=== PATIENT | female | born 1995 | race Caucasian/White ===

== ENCOUNTER 2017-01-16 11:55 | Emergency (ER) | payer MEDICAID, OTHER ==
[~2017-01-16] VITALS: Ht 154.9 cm; Wt 82.0 kg
[2017-01-16 11:56] VITALS: BP 132/99; PULSE 90; RESP 18; TEMP 97.6; O2SAT 100
[2017-01-16] MEDS ORDERED: SODIUM CHLORIDE 0.9% FLUSH 10 ML FLUSH IVF PRN (13:00)
[2017-01-16] MEDS ORDERED: SODIUM CHLOR 0.9% 1000 ML INJ 1,000 ML IV ONE (13:00)
[2017-01-16 13:36] VITALS: BP_SYST 132; BP_SYST 134; BP_DIAS 85; BP_DIAS 95; RESP 17; O2SAT 98
[2017-01-16 13:54] LABS: AUTOMATED NEUTROPHIL # 8.4 TH/MM3 (1.8-7.7); BASOPHIL % 0.2 % (0.0-2.0); EOSINOPHIL % 0.5 % (0.0-4.0); HEMATOCRIT 38.9 % (35.0-46.0); HEMO FLAGS DIFF FINAL; LYMPH % 17.2 % (9.0-44.0); LYMPHOCYTE # 1.9 TH/MM3 (1.0-4.8); MEAN CELL VOLUME 84.4 FL (80.0-100.0); MEAN CORPUSCULAR HEMOGLOBIN 27.8 PG (27.0-34.0); MEAN CORPUSCULAR HGB CONC 32.9 % (32.0-36.0); MONO % 4.6 % (0.0-8.0); NEUT % 77.5 % (16.0-70.0); PLATELET COUNT 299 TH/MM3 (150-450); RED BLOOD COUNT 4.61 MIL/MM3 (4.00-5.30); RED CELL DISTRIBUTION WIDTH 14.7 % (11.6-17.2); WHITE BLOOD COUNT 10.8 TH/MM3 (4.0-11.0)
--- NOTE | 2017-01-16 13:55 | PD ---
HPI Chief Complaint: Syncope/Near-Syncope Time Seen by Provider: 12:35 Travel History International Travel<30 days: No Contact w/Intl Traveler<30days: No Traveled to known affect area: No History of Present Illness HPI Patient is a 21-year-old female who presents to emergency with complaints of syncopal versus near syncopal episode today while at work. Patient reports that she [place] the mall today, reports that she was standing under a jane area and felt lightheaded. Reports that she went to the back and sat down and felt like she was going to pass out and may have passed out but reports that she just didn't feel well. Reports that she was easily arousable during this whole incident and had episodes of nausea and vomiting. Patient reports that this occurred 1 hour prior to arrival to the emergency room. Patient reports that she did not hit her head and was in a sitting position the whole time. Denies any chest pain/sob. Reports that she is 14 weeks with her second child. She did have a formal US [address] Varma's office which showed a normal IUP. She is due to see Dr. Varma in the office next week.. She does endorse that she was able to eat breakfast this morning. Denies headache/dizzynes/abdominal pain/ nausea or vomiting at this time. PFSH Past Medical History ADHD: Yes Diminished Hearing: No Immunizations Current: Yes Past Surgical History Section: Yes Social History Alcohol Use: No Tobacco Use: No Substance Use: No Allergies-Medications (Allergen,Severity, Reaction): Coded Allergies: latex (Verified Allergy, Severe, 01/16/17) shrimp (Unverified Allergy, Unknown, 01/16/17) Reported Meds & Prescriptions Reported Meds & Active Scripts Active No Active Prescriptions or Reported Medications Review of Systems General / Constitutional: No: Fever Eyes: No: Visual changes HENT: Positive: Lightheadedness, No: Headaches, Vertigo Cardiovascular: Positive: Syncope, No: Chest Pain or Discomfort, Palpitations, Irregular Rhythm Respiratory: No: Shortness of Breath Gastrointestinal: Positive: Nausea, Vomiting, No: Diarrhea, Abdominal Pain Genitourinary: No: Dysuria, Hesitancy, Incontinence, Pelvic Pain, Discharge, Vaginal Bleeding Musculoskeletal: No: Pain Skin: No Rash Neurologic: No: Weakness Psychiatric: No: Depression Endocrine: No: Polydipsia Hematologic/Lymphatic: No: Easy Bruising Physical Exam Narrative GENERAL: No acute distress, nontoxic SKIN: Focused skin assessment warm/dry. HEAD: Atraumatic. Normocephalic. EYES: Pupils equal and round. No scleral icterus. No injection or drainage. ENT: No nasal bleeding or discharge. Mucous membranes pink and moist. NECK: Trachea midline. No JVD. CARDIOVASCULAR: Regular rate and rhythm. No murmur appreciated. RESPIRATORY: No accessory muscle use. Clear to auscultation. Breath sounds equal bilaterally. GASTROINTESTINAL: Abdomen soft, non-tender, nondistended. Hepatic and splenic margins not palpable. MUSCULOSKELETAL: No obvious deformities. No clubbing. No cyanosis. No edema. NEUROLOGICAL: Awake and alert. No obvious cranial nerve deficits. Motor grossly within normal limits. Normal speech. PSYCHIATRIC: Appropriate mood and affect; insight and judgment normal. Data Data Last Documented VS Vital Signs Date Time Temp Pulse Resp B/P (MAP) Pulse Ox O2 Delivery O2 Flow Rate FiO2 01/16/17 13:36 98 Room Air 01/16/17 13:36 80 17 86 17 01/16/17 11:56 97.6 Orders Orders Electrocardiogram (01/16/17 13:00) Beta Hcg (Quant/Titer) (01/16/17 13:00) Ed Urine Pregnancytest Poc (01/16/17 13:00) Complete Blood Count With Diff (01/16/17 13:00) Comprehensive Metabolic Panel (01/16/17 13:00) Magnesium (Mg) (01/16/17 13:00) B-Type Natriuretic Peptide (01/16/17 13:00) Ckmb (Isoenzyme) Profile (01/16/17 13:00) Troponin I (01/16/17 13:00) Act Partial Throm Time (Ptt) (01/16/17 13:00) Prothrombin Time / Inr (Pt) (01/16/17 13:00) Urinalysis - C+S If Indicated (01/16/17 13:00) Blood Glucose (01/16/17 13:00) Ecg Monitoring (01/16/17 13:00) Iv Access Insert/Monitor (01/16/17 13:00) Oximetry (01/16/17 13:00) Sodium Chloride 0.9% Flush (Ns Flush) (01/16/17 13:00) Sodium Chlor 0.9% 1000 Ml Inj (Ns 1000 M (01/16/17 13:00) Orthostatic Vital Signs (01/16/17 13:00) Urine Culture (01/16/17 15:38) Ceftriaxone Inj (Rocephin Inj) (01/16/17 16:15) Labs Laboratory Tests Test 01/16/17 13:39 01/16/17 15:38 White Blood Count 10.8 TH/MM3 Red Blood Count 4.61 MIL/MM3 Hemoglobin 12.8 GM/DL Hematocrit 38.9 % Mean Corpuscular Volume 84.4 FL Mean Corpuscular Hemoglobin 27.8 PG Mean Corpuscular Hemoglobin Concent 32.9 % Red Cell Distribution Width 14.7 % Platelet Count 299 TH/MM3 Mean Platelet Volume 8.6 FL Neutrophils (%) (Auto) 77.5 % Lymphocytes (%) (Auto) 17.2 % Monocytes (%) (Auto) 4.6 % Eosinophils (%) (Auto) 0.5 % Basophils (%) (Auto) 0.2 % Neutrophils # (Auto) 8.4 TH/MM3 Lymphocytes # (Auto) 1.9 TH/MM3 Monocytes # (Auto) 0.5 TH/MM3 Eosinophils # (Auto) 0.0 TH/MM3 Basophils # (Auto) 0.0 TH/MM3 CBC Comment DIFF FINAL Differential Comment Prothrombin Time 10.1 SEC Prothromb Time International Ratio 0.9 RATIO Activated Partial Thromboplast Time 25.4 SEC Blood Urea Nitrogen 5 MG/DL Creatinine 0.58 MG/DL Random Glucose 75 MG/DL Total Protein 7.6 GM/DL Albumin 3.4 GM/DL Calcium Level 9.0 MG/DL Magnesium Level 2.1 MG/DL Alkaline Phosphatase 60 U/L Aspartate Amino Transf (AST/SGOT) 11 U/L Alanine Aminotransferase (ALT/SGPT) 17 U/L Total Bilirubin 0.5 MG/DL Sodium Level 137 MEQ/L Potassium Level 4.0 MEQ/L Chloride Level 104 MEQ/L Carbon Dioxide Level 23.8 MEQ/L Anion Gap 9 MEQ/L Estimat Glomerular Filtration Rate 134 ML/MIN Total Creatine Kinase 88 U/L Troponin I LESS THAN 0.02 NG/ML B-Type Natriuretic Peptide LESS THAN 2 PG/ML Human Chorionic Gonadotropin, Quant 01077 MIU/ML Urine Color YELLOW Urine Turbidity CLOUDY Urine pH 6.0 Urine Specific [place] 1.018 Urine Protein 30 mg/dL Urine Glucose (UA) NEG mg/dL Urine Ketones 40 mg/dL Urine Occult Blood SMALL Urine Nitrite NEG Urine Bilirubin NEG Urine Urobilinogen LESS THAN 2.0 MG/DL Urine Leukocyte Esterase LARGE Urine RBC 27 /hpf Urine WBC 30 /hpf Urine WBC Clumps RARE Urine Squamous Epithelial Cells 21 /hpf Urine Bacteria MOD /hpf Urine Mucus MANY /lpf Microscopic Urinalysis Comment CULTURE INDICATED MDM Medical Decision Making Medical Screen Exam Complete: Yes Emergency Medical Condition: Yes Medical Record Reviewed: Yes Interpretation(s) Vital Signs Date Time Temp Pulse Resp B/P (MAP) Pulse Ox O2 Delivery O2 Flow Rate FiO2 01/16/17 13:36 98 Room Air 01/16/17 13:36 80 17 132/85 (101) 86 17 134/95 (108) 01/16/17 11:56 97.6 90 18 132/99 (110) 100 Room Air Differential Diagnosis vasovagal syncope, acs, arrhythmia, orthostatic hypotension, electrolyte abnormality, uti Narrative Course EKG at 1331: NSR at 87bpm, qt/qtc: 369/410, non specific changes. FHR 150 - patient with no abdominal pain, vaginal bleeding or discharge During the course of the patients emergency department visit, the patients history, examination, and differential diagnosis were reviewed with the patient. The patient was placed on a telemetry monitor with oximetry and frequent blood pressure monitoring. The patient had 20 gauge IV access obtained and blood work sent for analysis. The patient was initially provided IVF The patients laboratory studies were reviewed and remarkable for CBC & BMP Diagram 01/16/17 13:39 Total Protein 7.6, Albumin 3.4, Calcium Level 9.0, Magnesium Level 2.1, Alkaline Phosphatase 60, Aspartate Amino Transf (AST/SGOT) 11 L, Alanine Aminotransferase (ALT/SGPT) 17, Total Bilirubin 0.5 trop less than 0.02, hcg quant 69,400 Near syncopal episode was likely from heat exhaustion as patients symptoms began after standing under the jane window. Patient reports that she is feeling much better at this time, patient's heart rate is 150, patient with no abdominal pain, no vaginal discharge or bleeding. 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 Signs and symptoms of when to return to emergency room was reviewed patient in detail. Discussed need for patient to drink plenty of fluids. Patient reports that she only drinks soda - discussed importance of maintaining hydration with water. UA positive for uti, patient was given a dose of iv rocephin, will send her home with script for kelfex, she will follow up with cultures from today. Diagnosis Primary Impression: Syncope, near Additional Impression: UTI (urinary tract infection) Patient Instructions: General Instructions Additional Instructions: Please provide patient with a copy of their lab work and studies at discharge* * Please follow up with your primary care doctor in 2-3 days Return to the ER if symptoms worsen or progress Return to the ER as needed Please follow up with Dr. Varma as scheduled Please drink plenty of fluids Please follow up with all cultures from today Scripts Cephalexin (Keflex) 500 Mg Cap 500 MG PO Q6H for Infection for 7 Days, #28 CAP 0 Refills Prov: Judy Duron DO 01/16/17 Disposition: 01 DISCHARGE HOME Condition: Stable Judy Duron DO Jan 16, 2017 13:55
[2017-01-16 14:02] LABS: APTT (PATIENT) 25.4 SEC (24.3-30.1); INTERNATIONAL NORMALIZED RATIO 0.9 RATIO; PROTHROMBIN TIME - PATIENT 10.1 SEC (9.8-11.6)
[2017-01-16 14:18] LABS: ANION GAP 9 MEQ/L (5-15); BICARBONATE 23.8 MEQ/L (21.0-32.0); BLOOD UREA NITROGEN 5 MG/DL (7-18); CHLORIDE 104 MEQ/L (98-107); GLOMERULAR FILTRATION RATE 134 ML/MIN (>89); MAGNESIUM 2.1 MG/DL (1.5-2.5); SODIUM (NA) 137 MEQ/L (136-145)
[2017-01-16 14:19] LABS: ALT (GPT) 17 U/L (9-42); AST (GOT) 11 U/L (16-38)
[2017-01-16 14:37] LABS: ALKALINE PHOSPHATASE 60 U/L (45-117); BETA HCG QUANT 69440 MIU/ML (0-5); TOTAL BILIRUBIN ADULT 0.5 MG/DL (0.2-1.0)
[2017-01-16 14:38] LABS: CREATINE KINASE 88 U/L (26-192)
[2017-01-16 15:59] LABS: BACTERIA, URINE MOD /hpf; BLOOD, URINE SMALL (NEG); COMMENT (UR) CULTURE INDICATED; CULTURE IF INDICATED CULTURE INDICATED; GLUCOSE,URINE NEG (NEG); KETONE, URINE 40 mg/dL (NEG); MUCUS URINE MANY /lpf (OCC); NITRITE,URINE NEG (NEG); SQUAMOUS EPITHELIAL CELL URINE 21 /hpf (0-5); URINE COLOR YELLOW (YELLW/STRAW)
[2017-01-16] MEDS ORDERED: CEPH-460 PO (16:11)
[2017-01-16] MEDS ORDERED: cefTRIAXone INJ 1,000 MG in SODIUM CHLORIDE 0.9% INJ 100 ML IV ONE (16:15)
--- NOTE | 2017-01-16 18:21 | EKG ---
Date Performed: 01/16/2017 Time Performed: 13:31:18 PTAGE: 21 years EKG: Sinus rhythm NONSPECIFIC T-WAVE ABNORMALITY BORDERLINE ECG No significant change from prior electrocardiogram. PREVIOUS TRACING : 11/09/2016 17.55 DOCTOR: Hiren Carter Interpretating Date/Time 01/16/2017 18:21:03
== END 2017-01-16 16:49 | disposition home or self-care (01) ==
LOC: NEPD 11:55
DX: R55 Syncope and collapse (principal); O23.42 Unspecified infection of urinary tract in pregnancy, second trimester; Z3A.14 14 weeks gestation of pregnancy
CPT/HCPCS: 80053; 81001; 82550; 83735; 83880; 84484; 84702; 85025; 85610; 85730; 87086; 93005; 96361; 96374; 99284; J0696; J7030

== ENCOUNTER 2017-06-18 10:19 | Observation (INO) | payer MEDICAID ==
[~2017-06-18] VITALS: Ht 154.9 cm; Wt 87.0 kg
[2017-06-18] VITALS (14 sets, daily range): BP systolic 138–154; BP diastolic 84–105; PULSE 78–121; RESP 16–18; TEMP 98.2–98.4
[2017-06-18] MEDS: SODIUM CHLORIDE 0.9% FLUSH 10 ML FLUSH IV FLUSH SCH (09:00)
[~2017-06-18 10:19] MED LIST: CEPH-460 PO
--- NOTE | 2017-06-18 11:11 | PD ---
HPI Chief Complaint Elevated BP Date Seen: Jun 18, 2017 Time Seen: 10:50 Travel History International Travel<30 Days: No Contact w/Intl Traveler<30Days: No History of Present Illness HPI Patient is a 22 year old at 36 and 0/7 weeks, RUFUS 07/16/2017, patient of Dr. Varma. She presents to the OB ED with reported office BP of 164/112 in setting of history of severe pre-eclampsia. She was sent for pre-eclampsia work- up.. She denies leakage of fluid, vaginal bleeding, and contractions. She feels baby moving regularly. She denies BLACKWELL/N/V/D/fever/sick contacts/SOB/calf pain/ dizziness/seeing spots. She did have syncopal episode first trimester and some global weakness. History of PreE: on aspirin 81mg but taking it only intermittently Of note patient is scheduled for repeat CS on her due date 07/16/2017 at 12pm. History Past Medical History Medical History: Denies Significant Hx Obstetric History Obstetric History G1: 2013, primary CS with Dr. Varma, severe PreE with abruption at 39 weeks G2: current, syncopal episode first trimester, elevated BP 2 weeks ago in office Past Surgical History Narrative Surgical section Family History Narrative Family History Mother with HTN, asthma, COPD Grandmother with PrE Family History: Negative Social History Alcohol Use: No Tobacco Use: No Substance Abuse: No Allergies-Medications (Allergen,Severity, Reaction): Coded Allergies: latex (Verified Allergy, Severe, 01/16/17) shrimp (Unverified Allergy, Unknown, 01/16/17) Home Meds Active Scripts Cephalexin (Keflex) 500 Mg Cap, 500 MG PO Q6H for Infection for 7 Days, #28 CAP 0 Refills Prov:Judy Duron DO 01/16/17 Review of Systems General / Constitutional: No: Fever, Chills Eyes: No: Blurred Vision, Visual changes HENT: No: Headaches, Vertigo Cardiovascular: No: Chest Pain or Discomfort, Syncope Respiratory: No: Cough, Short of Breath Gastrointestinal: No: Nausea, Vomiting, Diarrhea, Abdominal Pain Genitourinary: No: Urgency, Dysuria Musculoskeletal: Weakness, Edema Skin: No Rash, No Itching Neurologic: No: Weakness, Dizziness Physical Exam Narrative GENERAL: Well-nourished, well-developed patient. SKIN: Warm and dry. HEAD: Normocephalic and atraumatic. EYES: No scleral icterus. No injection or drainage. ENT: No nasal drainage noted. Mucous membranes pink. Airway patent. NECK: Supple, trachea midline. No JVD. CARDIOVASCULAR: Regular rate and rhythm without murmurs, gallops, or rubs. RESPIRATORY: Breath sounds equal bilaterally. No accessory muscle use. ABDOMEN/GI: Abdomen soft, non-tender, bowel sounds present, no rebound, no guarding Gravid to [-] weeks size Fundal Height: [-] GENITOURINARY: deferred Uterine Contractions: [absent] FHT's: Category: [1] Baseline: [150] Reactive: [170s] Variability: [mod] Decels: [absent] EXTREMITIES: No cyanosis, some mild bilateral 1+ pitting edema of LE BACK: Nontender without obvious deformity. No CVA tenderness. NEUROLOGICAL: Awake and alert. Motor and sensory grossly within normal limits. Five out of 5 muscle strength in all muscle groups. Normal speech. + left ankle clonus, mild. Normal 2+ patellar reflexes. Data Data Vital Signs Reviewed: Yes (BP 151/88, pulse 95, repeat BP 150/105) Orders Orders Vital Signs (Adult) .ON ADMISSION (06/18/17 10:41) ^ Labor Status (06/18/17 10:41) ^ Non Stress Test (06/18/17 10:41) ^ Hydration (06/18/17 10:41) Cbc No Diff, Includes Plts (06/18/17 10:47) Comprehensive Metabolic Panel (06/18/17 10:47) Uric Acid (06/18/17 10:47) Protein Creat Ratio, Random Ur (06/18/17 10:47) Prothrombin Time / Inr (Pt) (06/18/17 10:47) Labs GBS unknown MDM Medical Record Reviewed: Yes Narrative Course / MDM 22 year old at 36 and 0/7 weeks, RUFUS 07/16/2017, patient of Dr. Varma. Intrauterine : -Category 1 tracing -Repeat CS with Dr. Varma scheduled for 07/16/2017 at 12pm -Monitor heart tones -Routine care -GBS unknown: no history of sepsis, scheduled for CS Induced HTN: -Blood pressures elevated to 150s-160s/80-100s -She does report weakness (not noted on exam), but does have left ankle clonus -Rule out of preeclampsia indicated -CBC, CMP, urinalysis, urine protein/creatinine ratio, uric acid pending -Antihypertensives if BP >160/110 or symptoms -Magnesium and delivery if severe PreE -Aspirin prescribed but patient reports she has not been adherent DW Dr. Mondragon, [place] Dr. Varma Plan Pending workup Diagnosis Diagnosis: Primary Impression: Elevated blood pressure Additional Impressions: with 36 completed weeks gestation History of pre-eclampsia Alana Winchester MD R2 Jun 18, 2017 11:11
[2017-06-18 11:28] LABS: HEMATOCRIT 33.2 % (35.0-46.0); HEMOGLOBIN 10.9 GM/DL (11.6-15.3); MEAN CELL VOLUME 81.7 FL (80.0-100.0); MEAN CORPUSCULAR HEMOGLOBIN 26.8 PG (27.0-34.0); MEAN CORPUSCULAR HGB CONC 32.8 % (32.0-36.0); MEAN PLATELET VOLUME 9.4 FL (7.0-11.0); PLATELET COUNT 215 TH/MM3 (150-450); RED BLOOD COUNT 4.06 MIL/MM3 (4.00-5.30); RED CELL DISTRIBUTION WIDTH 15.5 % (11.6-17.2); WHITE BLOOD COUNT 6.9 TH/MM3 (4.0-11.0)
[2017-06-18 11:38] LABS: AST (GOT) 13 U/L (16-38); BICARBONATE 23.3 MEQ/L (21.0-32.0); BLOOD UREA NITROGEN 5 MG/DL (7-18); CALCIUM 8.6 MG/DL (8.5-10.1); CHLORIDE 109 MEQ/L (98-107); CREATININE 0.58 MG/DL (0.50-1.00); GLOMERULAR FILTRATION RATE 133 ML/MIN (>89); GLUCOSE,RANDOM 73 MG/DL (74-106); SODIUM (NA) 140 MEQ/L (136-145)
[2017-06-18 11:39] LABS: ALT (GPT) 15 U/L (9-42)
[2017-06-18 11:41] LABS: ALKALINE PHOSPHATASE 149 U/L (45-117); TOTAL BILIRUBIN ADULT 0.8 MG/DL (0.2-1.0); TOTAL PROTEIN 6.9 GM/DL (6.4-8.2)
[2017-06-18 11:42] LABS: BACTERIA, URINE RARE /hpf; BILIRUBIN, URINE NEG (NEG); BLOOD, URINE NEG (NEG); GLUCOSE,URINE NEG (NEG); KETONE, URINE 10 mg/dL (NEG); MUCUS URINE FEW /lpf (OCC); NITRITE,URINE NEG (NEG); SQUAMOUS EPITHELIAL CELL URINE 8 /hpf (0-5); TRANSITIONAL EPI CELLS, URINE <1 /hpf; URINE COLOR YELLOW (YELLW/STRAW); URINE LEUKOCYTE ESTERASE TRACE (NEG)
[2017-06-18] MEDS ORDERED: SODIUM CHLORIDE 0.9% FLUSH 10 ML FLUSH IV FLUSH PRN (12:15)
--- NOTE | 2017-06-18 12:27 | HHI.HP ---
HPI Chief Complaint induced HTN Date Seen: Jun 18, 2017 Time Seen: 12:15 Travel History International Travel<30 Days: No Contact w/Intl Traveler<30Days: No History of Present Illness HPI Patient is a 22 year old at 36 and 0/7 weeks, RUFUS 07/16/2017, patient of Dr. Varma. She presents to the OB ED with reported office BP of 164/112 in setting of history of severe pre-eclampsia. She was sent for pre-eclampsia work- up.. She denies leakage of fluid, vaginal bleeding, and contractions. She feels baby moving regularly. She denies BLACKWELL/N/V/D/fever/sick contacts/SOB/calf pain/ dizziness/seeing spots. She did have syncopal episode first trimester and some global weakness. History of PreE: on aspirin 81mg but taking it only intermittently Of note patient is scheduled for repeat CS on her due date 07/16/2017 at 12pm. Weeks Gestation: 1 Para: 2 History Past Medical History Medical History: Denies Significant Hx Obstetric History Obstetric History G1: 2014, primary CS with Dr. Varma, severe PreE with abruption at 39 weeks, lost 1L blood (acute abruption + old blood) G2: current, syncopal episode first trimester, elevated BP 2 weeks ago in office Past Surgical History Narrative Surgical section x 1 Family History Narrative Family History Mother with HTN, asthma, COPD Grandmother with PrE Social History Alcohol Use: No Tobacco Use: No Substance Abuse: No Allergies-Medications (Allergen,Severity, Reaction): Coded Allergies: latex (Verified Allergy, Severe, 01/16/17) shrimp (Unverified Allergy, Unknown, 01/16/17) Home Meds Discontinued Scripts Cephalexin (Keflex) 500 Mg Cap, 500 MG PO Q6H for Infection for 7 Days, #28 CAP 0 Refills Prov:Judy Duron DO 01/16/17 Review of Systems General / Constitutional: No: Fever, Chills Eyes: No: Blurred Vision, Visual changes HENT: No: Headaches, Vertigo Cardiovascular: No: Chest Pain or Discomfort, Palpitations, Syncope Respiratory: No: Cough, Short of Breath Gastrointestinal: No: Nausea, Vomiting, Diarrhea, Abdominal Pain Genitourinary: No: Urgency, Dysuria Musculoskeletal: Weakness, Edema Skin: No Rash, No Itching Neurologic: No: Weakness, Syncope Physical Exam Vital Signs Date Time Temp Pulse Resp B/P (MAP) Pulse Ox O2 Delivery O2 Flow Rate FiO2 06/18/17 11:45 94 17 148/98 (115) 06/18/17 11:45 99 06/18/17 11:40 89 06/18/17 11:35 95 06/18/17 11:30 93 154/92 (112) 06/18/17 11:30 93 06/18/17 11:06 98.4 17 06/18/17 11:00 90 148/102 (117) 06/18/17 10:50 78 150/105 (120) 06/18/17 10:42 95 151/88 (109) Narrative GENERAL: Well-nourished, well-developed patient. SKIN: Warm and dry. HEAD: Normocephalic and atraumatic. EYES: No scleral icterus. No injection or drainage. ENT: No nasal drainage noted. Mucous membranes pink. Airway patent. NECK: Supple, trachea midline. No JVD. CARDIOVASCULAR: Regular rate and rhythm without murmurs, gallops, or rubs. RESPIRATORY: Breath sounds equal bilaterally. No accessory muscle use. ABDOMEN/GI: Abdomen soft, non-tender, bowel sounds present, no rebound, no guarding Gravid to [-] weeks size Fundal Height: [-] GENITOURINARY: deferred Uterine Contractions: [absent] FHT's: Category: [1] Baseline: [150] Reactive: [170s] Variability: [mod] Decels: [absent] EXTREMITIES: No cyanosis, some mild bilateral 1+ pitting edema of LE BACK: Nontender without obvious deformity. No CVA tenderness. NEUROLOGICAL: Awake and alert. Motor and sensory grossly within normal limits. Five out of 5 muscle strength in all muscle groups. Normal speech. + left ankle clonus, mild. Normal 2+ patellar reflexes. Caprini VTE Risk Assessment Caprini VTE Risk Assessment: Mod/High Risk (score >= 2) VTE Pharm Contraindication: High risk for bleeding Caprini Risk Assessment Model Point Value = 1 Point Value = 2 Point Value = 3 Point Value = 5 Age 41-60 Minor surgery BMI > 25 kg/m2 Swollen legs Varicose veins or History of unexplained or recurrent spontaneous Oral contraceptives or hormone replacement Sepsis (< 1 month) Serious lung disease, including pneumonia (< 1 month) Abnormal pulmonary function Acute myocardial infarction Congestive heart failure (< 1 month) History of inflammatory bowel disease Medical patient at bed rest Age 61-74 Arthroscopic surgery Major open surgery (> 45 min) Laparoscopic surgery (> 45 min) Malignancy Confined to bed (> 72 hours) Immobilizing plaster cast Central venous access Age >= 75 History of VTE Family history of VTE Factor V Leiden Prothrombin [id number] Lupus anticoagulant Anticardiolipin antibodies Elevated serum homocysteine Heparin-induced thrombocytopenia Other congenital or acquired thrombophilia Stroke (< 1 month) Elective arthroplasty Hip, pelvis, or leg fracture Acute spinal cord injury (< 1 month) Prophylaxis Regimen Total Risk Factor Score Risk Level Prophylaxis Regimen 0-1 Low Early ambulation 2 Moderate Order ONE of the following: *Sequential Compression Device (SCD) *Heparin 5000 units SQ BID 3-4 Higher Order ONE of the following medications: *Heparin 5000 units SQ TID *Enoxaparin/Lovenox 40 mg SQ daily (WT < 150 kg, CrCl > 30 mL/min) *Enoxaparin/Lovenox 30 mg SQ daily (WT < 150 kg, CrCl > 10-29 mL/min) *Enoxaparin/Lovenox 30 mg SQ BID (WT < 150 kg, CrCl > 30 mL/min) AND/OR *Sequential Compression Device (SCD) 5 or more Highest Order ONE of the following medications: *Heparin 5000 units SQ TID (Preferred with Epidurals) *Enoxaparin/Lovenox 40 mg SQ daily (WT < 150 kg, CrCl > 30 mL/min) *Enoxaparin/Lovenox 30 mg SQ daily (WT < 150 kg, CrCl > 10-29 mL/min) *Enoxaparin/Lovenox 30 mg SQ BID (WT < 150 kg, CrCl > 30 mL/min) AND *Sequential Compression Device (SCD) Data Data Vital Signs Reviewed: Yes (BP 151/88, pulse 95, repeat BP 150/105) Orders Orders Vital Signs (Adult) .ON ADMISSION (06/18/17 10:41) ^ Labor Status (06/18/17 10:41) ^ Non Stress Test (06/18/17 10:41) ^ Hydration (06/18/17 10:41) Cbc No Diff, Includes Plts (06/18/17 10:47) Comprehensive Metabolic Panel (06/18/17 10:47) Uric Acid (06/18/17 10:47) Protein Creat Ratio, Random Ur (06/18/17 10:47) Urinalysis - C+S If Indicated (06/18/17 11:11) Us Ob Bpp Wo Nst Ua Dop W Rpt (06/18/17 12:01) Place In Observation (06/18/17 ) Diet Npo (06/18/17 Lunch) Vital Signs (Adult) JOANNE.[id number] AWAKE (06/18/17 12:10) Heart (06/18/17 12:10) Activity Bed Rest (06/18/17 12:10) Sodium Chloride 0.9% Flush (Ns Flush) (06/18/17 21:00) Sodium Chloride 0.9% Flush (Ns Flush) (06/18/17 12:15) Betamethasone Inj ([place] Soluspan In (06/18/17 12:15) Cbc No Diff, Includes Plts (06/19/17 06:00) Comprehensive Metabolic Panel (06/19/17 06:00) Uric Acid (06/19/17 06:00) Micro Albumin Creat Random Ur (06/19/17 06:00) Labs Laboratory Tests Test 06/18/17 10:30 White Blood Count 6.9 Red Blood Count 4.06 Hemoglobin 10.9 Hematocrit 33.2 Mean Corpuscular Volume 81.7 Mean Corpuscular Hemoglobin 26.8 Mean Corpuscular Hemoglobin Concent 32.8 Red Cell Distribution Width 15.5 Platelet Count 215 Mean Platelet Volume 9.4 Urine Color YELLOW Urine Turbidity HAZY Urine pH 7.0 Urine Specific [place] 1.016 Urine Protein TRACE Urine Glucose (UA) NEG Urine Ketones 10 Urine Occult Blood NEG Urine Nitrite NEG Urine Bilirubin NEG Urine Urobilinogen LESS THAN 2.0 Urine Leukocyte Esterase TRACE Urine RBC 1 Urine WBC 1 Urine Squamous Epithelial Cells 8 Urine Transitional Epithelial Cells <1 Urine Bacteria RARE Urine Mucus FEW Microscopic Urinalysis Comment CULT NOT INDICATED Urine Random Creatinine 150 Urine Random Total Protein 22 Urine Protein/Creatinine Ratio 0.15 Blood Urea Nitrogen 5 Creatinine 0.58 Random Glucose 73 Total Protein 6.9 Albumin 3.0 Calcium Level 8.6 Uric Acid 4.3 Alkaline Phosphatase 149 Aspartate Amino Transf (AST/SGOT) 13 Alanine Aminotransferase (ALT/SGPT) 15 Total Bilirubin 0.8 Sodium Level 140 Potassium Level 3.5 Chloride Level 109 Carbon Dioxide Level 23.3 Anion Gap 8 Estimat Glomerular Filtration Rate 133 Assessment/Plan Problem List: (1) induced hypertension, antepartum ICD Codes: O13.9 - Gestational [-induced] hypertension without significant proteinuria, unspecified trimester (2) with 36 completed weeks gestation ICD Codes: Z3A.36 - 36 weeks gestation of Status: Acute Assessment and Plan 22 year old at 36 and 0/7 weeks, RUFUS 07/16/2017, patient of Dr. Varma. Intrauterine : -Category 1 tracing -Repeat CS with Dr. Varma scheduled for 07/16/2017 at 12pm -Monitor heart tones -Routine care -GBS unknown: no history of sepsis, scheduled for CS -Will require repeat CS Induced HTN: -Blood pressures elevated to 150s-160s/80-100s -She does report weakness (not noted on exam), but does have left ankle clonus -Rule out of preeclampsia indicated -CBC showing mild anemia -CMP unremarkable, no transaminitis -UA showing trace protein -Uric acid 4.3 -Urine protein/creatinine ratio 0.15 -Antihypertensives indicated if BP >160/110 or symptoms, likely to use labetalol -Betamethasone 12mg IM q24hr, first dose now -Magnesium and delivery if severe PreE features present -Hx PreE, aspirin prescribed but patient reports she has not been adherent DW Dr. Mondragon, [place] Dr. Varma Discharge Planning Pending delivery, likely d/c to home 2-3 days post-operatively Alana Winchester MD R2 Jun 18, 2017 12:27
[2017-06-18] MEDS: BETAMETHASONE SOD PHOS/ACETATE SUSP 30 MG/5 ML VIAL IM SCH (13:35)
[2017-06-18] MEDS ORDERED: ZOLPIDEM TARTRATE 5 MG TAB PO PRN (18:00)
[2017-06-19] VITALS (15 sets, daily range): BP systolic 116–142; BP diastolic 53–90; PULSE 92–111; RESP 7–18; TEMP 97.9–98.5
[2017-06-19 05:52] LABS: HEMATOCRIT 32.5 % (35.0-46.0); HEMOGLOBIN 10.4 GM/DL (11.6-15.3); MEAN CELL VOLUME 81.9 FL (80.0-100.0); MEAN CORPUSCULAR HEMOGLOBIN 26.3 PG (27.0-34.0); MEAN PLATELET VOLUME 9.7 FL (7.0-11.0); PLATELET COUNT 226 TH/MM3 (150-450); RED BLOOD COUNT 3.96 MIL/MM3 (4.00-5.30); RED CELL DISTRIBUTION WIDTH 15.8 % (11.6-17.2); WHITE BLOOD COUNT 11.5 TH/MM3 (4.0-11.0)
[2017-06-19 06:25] LABS: ALBUMIN 2.9 GM/DL (3.4-5.0); AST (GOT) 9 U/L (16-38); BLOOD UREA NITROGEN 5 MG/DL (7-18); CALCIUM 8.5 MG/DL (8.5-10.1); CHLORIDE 108 MEQ/L (98-107); CREATININE 0.56 MG/DL (0.50-1.00); GLOMERULAR FILTRATION RATE 138 ML/MIN (>89); GLUCOSE,RANDOM 102 MG/DL (74-106); SODIUM (NA) 140 MEQ/L (136-145)
[2017-06-19 06:26] LABS: ALT (GPT) 15 U/L (9-42)
[2017-06-19 06:28] LABS: ALKALINE PHOSPHATASE 145 U/L (45-117); TOTAL BILIRUBIN ADULT 0.9 MG/DL (0.2-1.0); TOTAL PROTEIN 6.5 GM/DL (6.4-8.2)
[2017-06-19] MEDS: SODIUM CHLORIDE 0.9% FLUSH 10 ML FLUSH IV FLUSH SCH ×2 (09:27→21:00)
[2017-06-19] MEDS: BETAMETHASONE SOD PHOS/ACETATE SUSP 30 MG/5 ML VIAL IM SCH (13:38)
--- NOTE | 2017-06-19 16:55 | HHI.PR ---
Subjective Remarks Doing well, tolerating diet Baby is moving well No h/a, [place], or RUQ Objective Vital Signs Date Time Temp Pulse Resp B/P (MAP) Pulse Ox O2 Delivery O2 Flow Rate FiO2 06/19/17 13:41 97 138/90 (106) 06/19/17 12:40 16 06/19/17 12:24 98 129/87 (101) 06/19/17 12:23 98.5 06/19/17 09:29 100 131/75 (93) 06/19/17 07:50 98.3 16 06/19/17 07:15 92 116/71 (86) 06/19/17 04:22 92 122/53 (76) 06/19/17 04:21 18 06/19/17 00:04 102 124/65 (84) 06/19/17 00:00 97.9 18 06/18/17 19:52 18 06/18/17 19:52 98.2 06/18/17 19:50 107 138/84 (102) 06/18/17 17:51 121 142/87 (105) 06/18/17 17:49 18 Result Diagram: 06/19/17 0504 06/19/17 0504 Other Results WDWN in NAD No swelling Chest is clear CV RRR Abd is gravid and non tender Ext No CCE DTR are +3 and several beats of clonus Assessment and Plan Assessment and Plan 1. IUP at 36/1 2. Pre eclampsia not severe yet although she still has clonus. She has a terrible history of acute onset of pre eclampsia and placental abruption. She has received her steroids and will consider delivering her early..perhaps Saturday due to her poor history. Will follow her carefully and if she develops severe features will deliver sooner. Pedro Pablo Varma MD Jun 19, 2017 16:55
[2017-06-20] VITALS (8 sets, daily range): BP systolic 119–130; BP diastolic 58–81; PULSE 88–95; RESP 16–18; TEMP 97.9–98.5
[2017-06-20] MEDS: SODIUM CHLORIDE 0.9% FLUSH 10 ML FLUSH IV FLUSH SCH ×2 (09:00→21:00)
[2017-06-20] MEDS ORDERED: DEXTROSE 5%-LACTATED RING INJ 1,000 ML IV ONE (16:00)
[2017-06-21] VITALS (10 sets, daily range): BP systolic 130–137; BP diastolic 76–94; PULSE 51–84; RESP 15–20; TEMP 98–98.3; O2SAT 98–99
[2017-06-21] MEDS: SODIUM CHLORIDE 0.9% FLUSH 10 ML FLUSH IV FLUSH SCH (09:00)
--- NOTE | 2017-06-21 09:27 | HHI.PR ---
Objective - Vital Signs Date Time Temp Pulse Resp B/P (MAP) Pulse Ox O2 Delivery O2 Flow Rate FiO2 06/21/17 09:05 18 06/20/17 23:47 88 119/58 (78) 06/20/17 20:18 98.3 Result Diagram: 06/19/17 0504 06/19/17 0504 A/P Problem List: (1) Pre-eclampsia ICD Code: O14.90 - Unspecified pre-eclampsia, unspecified trimester Assessment and Plan HEART NORMAL RHYTHM LUNGS CLEAR TO AUSCULTATION ANTERIOR AND POSTERIOR ABD SOFT AND NONTENDER WITH + BS NO EDEMA OR TENDERNESS TO LOWER EXTREMITIES PT DONG WELL BP WNL, REPEAT LABS ORDERED FOR TODAY PT DENIES LBACKWELL, C/O SEEING OCCASIONAL SPOTS, NO EPIGASTRIC PAIN, PATELLAR REFLEX BRISK FHT TRACING 140'S + ACCELS NO DECELS N A 24 HOUR REVIEW OF STRIP CONSIDER REPEAT C SECTION TOMORROW Discharge Planning UNSURE AT THIS TIME Attending Attestation SEEN AND EXAMINED WITH DR STEWARD AND MEDICAL STUDENT Chani Rizo Jun 21, 2017 09:27
[2017-06-21 10:59] LABS: AUTOMATED NEUTROPHIL # 8.1 TH/MM3 (1.8-7.7); BASOPHIL % 0.2 % (0.0-2.0); HEMATOCRIT 29.7 % (35.0-46.0); HEMOGLOBIN 9.7 GM/DL (11.6-15.3); LYMPHOCYTE # 1.9 TH/MM3 (1.0-4.8); MEAN CELL VOLUME 81.6 FL (80.0-100.0); MEAN CORPUSCULAR HEMOGLOBIN 26.7 PG (27.0-34.0); MEAN CORPUSCULAR HGB CONC 32.7 % (32.0-36.0); MEAN PLATELET VOLUME 9.4 FL (7.0-11.0); MONO % 6.7 % (0.0-8.0); MONOCYTE # 0.7 TH/MM3 (0-0.9); NEUT % 75.1 % (16.0-70.0); PLATELET COUNT 211 TH/MM3 (150-450); RED BLOOD COUNT 3.64 MIL/MM3 (4.00-5.30); RED CELL DISTRIBUTION WIDTH 15.9 % (11.6-17.2); WHITE BLOOD COUNT 10.7 TH/MM3 (4.0-11.0)
[2017-06-21 11:27] LABS: ALBUMIN 2.8 GM/DL (3.4-5.0); DIRECT BILIRUBIN ADULT 0.2 MG/DL (0.0-0.2)
[2017-06-21 11:28] LABS: INDIRECT BILIRUBIN 0.6 MG/DL (0.0-0.8); TOTAL BILIRUBIN ADULT 0.8 MG/DL (0.2-1.0); TOTAL PROTEIN 6.2 GM/DL (6.4-8.2)
[2017-06-21] MEDS ORDERED: LACTATED RINGER'S 1000 ML INJ 1,000 ML IV ONE (12:00)
[2017-06-21] MEDS ORDERED: ceFAZolin INJ 1,000 MG VIAL IV ONE ×3 (12:00→16:30)
[2017-06-21] MEDS ORDERED: KETOROLAC TROMETHAMINE 30 MG/ML (IVP) VIAL IV PUSH ONE (12:00)
[2017-06-21] MEDS ORDERED: OXYTOCIN 10 UNIT/ML AMP IV ONE (12:00)
[2017-06-21] MEDS ORDERED: PHENYLEPH/NS 1000 MCG/10 ML SYR IV ONE (12:00)
[2017-06-21] MEDS ORDERED: ONDANSETRON HCL 4 MG/2 ML VIAL IV ONE (12:00)
[2017-06-21] MEDS ORDERED: DEXAMETHASONE SOD PHOS 4 MG/ML VIAL IV ONE (12:00)
[2017-06-21] MEDS ORDERED: CITRIC ACID-SODIUM CITRATE LIQ 30 ML UDC ONE (15:42)
[2017-06-21] MEDS ORDERED: MORPHINE SULFATE PF 5 MG/10 ML VIAL ONE (15:46)
[2017-06-21] MEDS ORDERED: ACETAMINOPHEN 1000 MG/100 ML 100 ML IV ONE (15:47)
[2017-06-21] MEDS ORDERED: OXYTOCIN 30 UNITS-500ML PREMIX 500 ML IV ONE ×2 (17:45)
[2017-06-21] MEDS ORDERED: oxyCODONE/ACETAMINOPHEN 5 MG/325 MG TAB PO PRN ×2 (17:45)
[2017-06-21] MEDS ORDERED: ACETAMINOPHEN 325 MG TAB PO PRN (17:45)
[2017-06-21] MEDS ORDERED: ZOLPIDEM TARTRATE 5 MG TAB PO PRN (17:45)
[2017-06-21] MEDS ORDERED: SODIUM CHLORIDE 0.9% FLUSH 10 ML FLUSH IV FLUSH PRN (17:45)
[2017-06-21] MEDS ORDERED: ONDANSETRON HCL 4 MG/2 ML VIAL IV PUSH PRN (17:45)
[2017-06-21] MEDS ORDERED: OXYTOCIN 30 UNITS-500ML PREMIX 500 ML ONE (19:22)
[2017-06-21] MEDS ORDERED: SODIUM CHLORIDE 0.9% FLUSH 10 ML FLUSH IV FLUSH SCH (21:00)
[2017-06-21] MEDS ORDERED: EPIDURAL-DO NOT ADMINISTER ANTICOAGULANTS PRN (21:15)
[2017-06-21] MEDS ORDERED: EPIDURAL-NO SYSTEMIC NARCOTICS PRN (21:15)
[2017-06-21] MEDS ORDERED: EPIDURAL-DIPHENHYDRAMINE HCL 50 MG/ML VIAL IV PUSH PRN (21:15)
[2017-06-21] MEDS ORDERED: EPIDURAL-NALOXONE HCL 0.4 MG/ML AMP IV PUSH PRN (21:15)
[2017-06-21] MEDS ORDERED: EPIDURAL-DIPHENHYDRAMINE HCL 50 MG CAP PO PRN (21:15)
[2017-06-21] MEDS ORDERED: OXYTOCIN 30 UNITS-500ML PREMIX 500 ML IV PRN (22:45)
[2017-06-21] MEDS ORDERED: LACTATED RINGER'S 1000 ML INJ 1,000 ML IV SCH (22:45)
[2017-06-22] VITALS (7 sets, daily range): BP systolic 118–145; BP diastolic 69–92; PULSE 62–86; RESP 7–18; TEMP 98–98.6; O2SAT 94–99
[2017-06-22 04:55] LABS: AUTOMATED NEUTROPHIL # 12.5 TH/MM3 (1.8-7.7); BASOPHIL % 0.2 % (0.0-2.0); HEMATOCRIT 29.4 % (35.0-46.0); HEMOGLOBIN 9.7 GM/DL (11.6-15.3); LYMPH % 10.8 % (9.0-44.0); LYMPHOCYTE # 1.7 TH/MM3 (1.0-4.8); MEAN CELL VOLUME 80.8 FL (80.0-100.0); MEAN CORPUSCULAR HEMOGLOBIN 26.7 PG (27.0-34.0); MEAN PLATELET VOLUME 9.4 FL (7.0-11.0); MONO % 7.7 % (0.0-8.0); MONOCYTE # 1.2 TH/MM3 (0-0.9); NEUT % 81.3 % (16.0-70.0); PLATELET COUNT 216 TH/MM3 (150-450); RED BLOOD COUNT 3.63 MIL/MM3 (4.00-5.30); RED CELL DISTRIBUTION WIDTH 15.7 % (11.6-17.2); WHITE BLOOD COUNT 15.4 TH/MM3 (4.0-11.0)
[2017-06-22] MEDS: IBUPROFEN 600 MG TAB PO PRN ×2 (05:00→18:42)
[2017-06-22] MEDS ORDERED: DIPHTH/TETANUS/ACEL PERTUSSIS (BOOSTER) 0.5 ML VIAL/PFS IM ONE ×2 (06:00→16:00)
[2017-06-22] MEDS ORDERED: MEASLES, MUMPS, RUBELLA VACCINE 0.5 ML VIAL SQ ONE (16:00)
--- NOTE | 2017-06-22 16:08 | HHI.OB ---
Subjective Post Operative Day: 1 Remarks Doing well Tolerating diet well Pain is well controlled Baby is doing well. Objective Vitals/I&O Vital Signs Date Time Temp Pulse Resp B/P (MAP) Pulse Ox O2 Delivery O2 Flow Rate FiO2 06/22/17 12:38 70 136/76 (96) 06/22/17 12:38 98.2 18 06/22/17 08:50 98.3 62 18 140/86 (104) 06/22/17 06:00 98.1 79 18 142/92 (109) 99 06/22/17 04:00 98.0 74 18 135/69 (91) 94 06/22/17 00:00 18 06/22/17 00:00 98.6 7 99 06/22/17 00:00 76 134/69 (90) 06/21/17 20:00 98.0 63 16 130/80 (97) 99 06/21/17 19:15 99 06/21/17 19:15 56 15 131/85 (100) 06/21/17 18:57 98.3 06/21/17 18:45 18 98 06/21/17 18:45 59 130/82 (98) 06/21/17 18:32 57 18 135/85 (102) 98 06/21/17 18:18 51 18 98 06/21/17 18:18 131/76 (94) 06/21/17 18:01 73 18 137/84 (101) 98 Result Diagram: 06/22/17 0419 06/19/17 0504 Objective Remarks GENERAL: Well-nourished, well-developed patient. CARDIOVASCULAR: Regular rate and rhythm without murmurs, gallops, or rubs. RESPIRATORY: Breath sounds equal bilaterally. No accessory muscle use. ABDOMEN/GI: Abdomen soft, non-tender, bowel sounds present. Incision: Clean, dry and intact. Fundus: Firm, non-tender at umbilicus. GENITOURINARY: Light to moderate bleeding. EXTREMITIES: No cyanosis or edema, non-tender, without signs of DVT. Medications and IVs Current Medications Medications (Trade) Dose Ordered Sig/Yon Route Start Time Stop Time Status Last Admin Lactated Ringer's 1,000 ml @ 100 mls/hr Q10H IV 06/21/17 22:45 06/22/17 18:44 Oxytocin 500 ml @ 100 mls/hr UNSCH X1 PRN IV 06/21/17 22:45 06/22/17 22:44 (NS Flush) 2 ml BID IV FLUSH 06/21/17 21:00 (NS Flush) 2 ml UNSCH PRN IV FLUSH 06/21/17 17:45 (Tylenol) 650 mg Q6H PRN PO 06/21/17 17:45 (Motrin) 600 mg Q6H PRN PO 06/21/17 17:45 06/22/17 05:00 (Percocet 5-325 Mg) 1 tab Q4H PRN PO 06/21/17 17:45 (Percocet 5-325 Mg) 2 tab Q4H PRN PO 06/21/17 17:45 (Ambien) 5 mg HS PRN PO 06/21/17 17:45 (Zofran Inj) 4 mg Q6H PRN IV PUSH 06/21/17 17:45 Miscellaneous Information NO SYSTEMIC NARCOTICS TO BE GIVEN FO... UNSCH PRN .XX 06/21/17 21:15 06/22/17 21:14 (Narcan Inj) 0.4 mg UNSCH PRN IV PUSH 06/21/17 21:15 06/22/17 21:14 (Benadryl Inj) 25 mg Q6H PRN IV PUSH 06/21/17 21:15 06/22/17 21:14 (Benadryl) 50 mg Q6H PRN PO 06/21/17 21:15 06/22/17 21:14 Miscellaneous Information ALL NURSING DEPARTMENTS UNSCH PRN .XX 06/21/17 21:15 06/22/17 21:14 Assessment/Plan Problem List: (1) induced hypertension, antepartum ICD Codes: O13.9 - Gestational [-induced] hypertension without significant proteinuria, unspecified trimester (2) with 36 completed weeks gestation ICD Codes: Z3A.36 - 36 weeks gestation of Status: Acute Assessment and Plan POD#1 Anemia will start fe after the percocet is done Routine care Pedro Pablo Varma MD Jun 22, 2017 16:08
[2017-06-23 07:15] VITALS: BP 122/91; PULSE 83; RESP 20; TEMP 98.5
[2017-06-23] MEDS: IBUPROFEN 600 MG TAB PO PRN (10:31)
--- NOTE | 2017-06-23 11:24 | HHI.OB ---
Subjective Post Operative Day: 2 Remarks Doing well, Pain well controlled baby is good in the NICU now. Breathing problems Bleeding is normal Objective Vitals/I&O Vital Signs Date Time Temp Pulse Resp B/P (MAP) Pulse Ox O2 Delivery O2 Flow Rate FiO2 06/23/17 07:15 98.5 83 20 122/91 (101) 06/22/17 20:00 98.1 72 18 118/86 (97) 96 06/22/17 15:50 98.3 86 16 145/81 (102) 06/22/17 12:38 70 136/76 (96) 06/22/17 12:38 98.2 18 Result Diagram: 06/22/17 0419 06/19/17 0504 Objective Remarks GENERAL: Well-nourished, well-developed patient. CARDIOVASCULAR: Regular rate and rhythm without murmurs, gallops, or rubs. RESPIRATORY: Breath sounds equal bilaterally. No accessory muscle use. ABDOMEN/GI: Abdomen soft, non-tender, bowel sounds present. Incision: Clean, dry and intact. Fundus: Firm, non-tender at umbilicus. GENITOURINARY: Light to moderate bleeding. EXTREMITIES: No cyanosis or edema, non-tender, without signs of DVT. Medications and IVs Current Medications Medications (Trade) Dose Ordered Sig/Yon Route Start Time Stop Time Status Last Admin (NS Flush) 2 ml BID IV FLUSH 06/21/17 21:00 (NS Flush) 2 ml UNSCH PRN IV FLUSH 06/21/17 17:45 (Tylenol) 650 mg Q6H PRN PO 06/21/17 17:45 (Motrin) 600 mg Q6H PRN PO 06/21/17 17:45 06/23/17 10:31 (Percocet 5-325 Mg) 1 tab Q4H PRN PO 06/21/17 17:45 06/22/17 18:42 (Percocet 5-325 Mg) 2 tab Q4H PRN PO 06/21/17 17:45 06/23/17 10:31 (Ambien) 5 mg HS PRN PO 06/21/17 17:45 (Zofran Inj) 4 mg Q6H PRN IV PUSH 06/21/17 17:45 Assessment/Plan Problem List: (1) induced hypertension, antepartum ICD Codes: O13.9 - Gestational [-induced] hypertension without significant proteinuria, unspecified trimester (2) with 36 completed weeks gestation ICD Codes: Z3A.36 - 36 weeks gestation of Status: Acute Assessment and Plan POD #2 Anemia will start fe after the percocet is done Routine care Pedro Pablo Varma MD Jun 23, 2017 11:24
[2017-06-23] MEDS ORDERED: OXYC1TAB63 PO (11:27)
[2017-06-23] MEDS ORDERED: IBUP-232 PO (11:27)
--- NOTE | 2017-06-23 11:28 | HHI.DCPOC ---
Discharge Care Plan Diagnosis: (1) delivery delivered (2) Non-reassuring electronic monitoring tracing (3) Pre-eclampsia (4) with 36 completed weeks gestation Report Symptoms to Your Doctor -Temperature above 100.5 degrees -Redness, of incision or excessive or foul smelling drainage -Unusual pain or calf pain -Increased vaginal bleeding -Painful or difficulty urinating -Feelings of extreme sadness or anxiety after 2 weeks Goals to Promote Your Health * To prevent worsening of your condition and complications * To maintain your health at the optimal level Directions to Meet Your Goals Take your medications as prescribed Follow your dietary instruction Follow activity as directed Ensure plenty of rest for recovery Drink fluids for hydration Keep your appointments as scheduled Take your immunizations and boosters as scheduled If your symptoms worsen call your PCP, if no PCP go to Urgent Care Center or Emergency Room Smoking is Dangerous to Your Health. Avoid second hand smoke Call the 24-hour crisis hotline for domestic abuse at Pedro Pablo Varma MD Jun 23, 2017 11:28
--- NOTE | 2017-06-24 14:46 | MP ---
cc: Pedro Pablo Varma MD DATE OF OPERATION: 06/21/2017 PREOPERATIVE DIAGNOSES: 1. Intrauterine at 36 weeks. 2. Atypical preeclampsia. 3. History of abruption. 4. Nonreassuring strip. POSTOPERATIVE DIAGNOSES: 1. Intrauterine at 36 weeks. 2. Atypical preeclampsia. 3. History of abruption. 4. Nonreassuring strip. PROCEDURE PERFORMED: Repeat low transverse section. ANESTHESIA: Spinal. SURGEON: Pedro Pablo Varma MD FINDINGS: Normal uterus, normal tubes, normal ovaries. A viable baby with good Apgars. COMPLICATIONS: None. COUNTS: Correct. ESTIMATED BLOOD LOSS: 600 mL FLUIDS: Crystalloids. CONDITION: The patient tolerated the procedure well, went to the recovery room in good condition. DESCRIPTION OF PROCEDURE: The patient was taken to the operating room identified by name band and verbally. She was given a spinal anesthetic. A Parra catheter was inserted. She was prepped and draped for section. The old Pfannenstiel incision was removed and excised completely and the incision was taken down to the fascia. The fascia was taken off the rectus muscle by blunt and sharp dissection. The peritoneum was entered under direct vision without complication. The incision was extended with care to avoid the urinary bladder. A bladder blade was placed and a bladder flap created over the lower uterine segment which was well-developed. The uterus was then scored in a transverse manner along the lower uterine segment and taken down in the midline until the uterine cavity was entered. The incision was extended with the surgeon's fingers. The vertex was grasped and delivered through the incision without difficulty. The hypopharynx and nasopharynx were suctioned. The remainder of the was delivered. The cord was doubly clamped and cut and the infant handed to the resuscitation team that was present. Cord blood was obtained. The placenta was delivered manually without difficulty. The uterus was curettaged twice with a wet lap. The uterine incision was repaired with 2-0 Vicryl a running locking fashion, the second layer imbricating the first. The cul-de-sac and gutters were cleaned of blood and debris with a large amount of irrigation. The uterus was delivered back into the abdomen. The incision was again inspected and was hemostatic. The rectus muscles were reapproximated with 0 Vicryl in an interrupted fashion. The fascia was repaired with 0 Vicryl from lateral to midline bilaterally in a running fashion. The subcutaneous tissue was repaired with 3-0 Vicryl. The skin was repaired with 4-0 Monocryl in a subcuticular manner. Steri-Strips were applied. The wound was sterilely dressed. She tolerated the procedure well and went to the recovery room in good condition. R. MD PAULETTE Curiel/WALESKA , 02:28 PM , 02:45 PM
== END 2017-06-23 13:26 | disposition home or self-care (01) ==
LOC: HOBED 10:19 → UNDOADMIN 12:32 → OBSVTOIN 12:32 → INTOOBSV 12:32 → H2EA 12:32 → H1EA 06-21 19:44 → H2EA 06-21 19:44 → UNDODISIN 06-23 13:26
PROVIDERS: ADMIT Obstetrics & Gynecology; ATTEND Obstetrics & Gynecology
DX: O76 Abnormality in fetal heart rate and rhythm complicating labor and delivery (principal); O34.211 Maternal care for low transverse scar from previous cesarean delivery; O13.4 Gestational [pregnancy-induced] hypertension without significant proteinuria, complicating childbirth; D64.9 Anemia, unspecified; Z3A.36 36 weeks gestation of pregnancy; Z37.0 Single live birth; O99.02 Anemia complicating childbirth; Z82.5 Family history of asthma and other chronic lower respiratory diseases; Z82.49 Family history of ischemic heart disease and other diseases of the circulatory system
CPT/HCPCS: 01961; 36415; 59025; 59510; 76816; 76819; 76820; 80053; 80076; 81001; 82570; 84156; 84157; 84550; 85025; 85027; 86900; 86901; 88307; 90715; 96372; 99285; G0378; J0131; J0690; J0702; J1100; J1885; J2274; J2370; J2405; J2590; J7120